=== PATIENT | female | born 1970 | race Caucasian/White ===

== ENCOUNTER → 2016-07-27 | Outpatient (CLI) | payer OTHER ==
[~2016-07-27] MED LIST: CIPR-255 PO; ESOM1TAB PO; LEVO137T3 PO; MULT-190 PO; MULT-506 PO
== END | disposition home or self-care (01) ==
LOC: C.LABBFT 16:23
PROVIDERS: ATTEND Internal Medicine
DX: E03.9 Hypothyroidism, unspecified (principal)

== ENCOUNTER → 2016-08-22 | Outpatient (CLI) | payer OTHER ==
--- NOTE | 2016-08-22 13:33 | MAMMOGRAPHY REPORT ---
BILATERAL DIGITAL DIAGNOSTIC MAMMOGRAM TOMOSYNTHESIS WITH CAD AND TARGETED RIGHT ULTRASOUND: 7 CLINICAL HISTORY: 46-year-old female presents for annual bilateral screening mammography. She is la te to follow-up probably benign findings in the right 6:00 and 6:30 breast on ultrasound. Patient r eports interval weight loss. TECHNIQUE: Bilateral breast tomosynthesis in addition to standard 2D mammography was performed. Curr ent study was also evaluated with a Computer Aided Detection (CAD) system. COMPARISON: Comparison is made to exam dated: 05/04/2015 mammogram. BREAST COMPOSITION: The tissue of both breasts is heterogeneously dense, which may obscure small ma sses. The breast density has increased compared to the 05/04/2015 exam. There is decreased subcuta neous and retroglandular fat, consistent with the clinical history of interval weight loss. FINDINGS: There are stable benign-appearing calcifications in the medial posterior aspect of the wendy asts. No suspicious mass, architectural distortion or cluster of microcalcifications is seen. Targeted ultrasound was performed in the 5:00 through 7:00 axes of the right breast with particular attention to the 6:00 and 6:30 axis in the locations of previously described complicated cysts based on the outside ultrasound report. In the 6:30 breast, 3 cm from the nipple, there are 2 adjacent a nechoic simple cysts measuring 4.2 x 2.7 x 4.2 mm in conglomerate. These have not significantly wilton nged compared to the previous ultrasound. However, no mass is identified in the 6:00 breast, 4 cm f rom the nipple in the area of probable, located cyst. Currently, an anechoic benign simple cyst is seen in the right 6:00 breast, 1 cm from the nipple, measuring 4.8 x 3.3 x 6.1 mm. Other smaller an echoic simple cysts are identified in the 6:30 and 5:00 axes. No suspicious solid mass is seen. IMPRESSION: ACR BI-RADS CATEGORY 2: BENIGN, TARGETED ULTRASOUND ACR BI-RADS CATEGORY 2: BENIGN 1. Increased density of the breasts mammographically, compatible with the clinical history of weight loss. 2. There is no mammographic evidence of malignancy bilaterally. One of the previously identified cy sts in the 6:00 right breast has resolved and the other small abutting simple cysts are stable, and benign in appearance. No further close follow-up is needed at this time. 3. There is no mammographic or targeted sonographic evidence of malignancy. A 1 year screening mammo gram is recommended. The patient has been verbally notified of the results. Approximately 10% of breast cancers are not detected with mammography. A negative mammographic repor t should not delay biopsy if a clinically suggestive mass is present. Shirley Huerta M.D. ay/:08/22/2016 12:08:15 Locomotive Electrician: Loren Crews, [facility] letter sent: Normal 1/2 BI-RADS Code: ACR BI-RADS Category 2: Benign Ultrasound BI-RADS: ACR BI-RADS Category 2: Benign
== END | disposition home or self-care (01) ==
LOC: C.MAMM 10:39
PROVIDERS: ATTEND Internal Medicine
DX: R92.8 Other abnormal and inconclusive findings on diagnostic imaging of breast (principal); N64.89 Other specified disorders of breast

== ENCOUNTER → 2016-12-27 | Outpatient (CLI) | payer OTHER ==
[2016-12-27 12:21] LABS: BASO % 1.2 %; BASO ABS # 0.09 K/uL (0-0.2); COMPLETE YES; EOS % 2.8 %; HEMATOCRIT 40.2 % (37-47); IG% 0.1 %; LYMPH % 33.6 %; LYMPH ABS # 2.54 K/uL (1.2-3.4); MEAN CELL VOLUME 88.7 fL (80-100); MEAN CORPUSCULAR HEMOGLOBIN 30.2 pg (25-34); MEAN CORPUSCULAR HGB CONC 34.1 g/dl (32-36); MEAN PLATELET VOLUME 9.2 fL (7.4-10.4); MONO % 11.9 %; NEUT % 50.4 %; PLATELET COUNT 293 K/uL (130-400); RED BLOOD COUNT 4.53 M/uL (4.2-5.4); WHITE BLOOD COUNT 7.56 K/uL (4.8-10.8)
[2016-12-27 19:03] LABS: THYROID STIMULATING HORMONE 0.142 uIu/ml (0.300-4.500)
== END | disposition home or self-care (01) ==
LOC: C.LABBFT 11:14
PROVIDERS: ATTEND Internal Medicine
DX: N92.0 Excessive and frequent menstruation with regular cycle (principal); E03.9 Hypothyroidism, unspecified

== ENCOUNTER → 2017-01-23 | Outpatient (CLI) | payer OTHER | END | disposition home or self-care (01) | LOC: C.PAPS 11:19 | PROVIDERS: ATTEND Physician Assistant | DX: Z01.419 Encounter for gynecological examination (general) (routine) without abnormal findings (principal) ==

== ENCOUNTER → 2017-01-23 | Outpatient (CLI) | payer OTHER ==
[2017-01-25 15:42] LABS: CHLAMYDIA TRACH RNA*** NOT DETECTED (NOT DETECTED); GC (NEIS GONORRHOEAE)RNA** NOT DETECTED (NOT DETECTED)
== END | disposition home or self-care (01) ==
LOC: C.LAB1850 12:25
PROVIDERS: ATTEND Physician Assistant
DX: Z11.3 Encounter for screening for infections with a predominantly sexual mode of transmission (principal)

== ENCOUNTER → 2017-02-21 | Outpatient (CLI) | payer OTHER | END | disposition home or self-care (01) | LOC: C.LABBFT 17:54 | PROVIDERS: ATTEND Internal Medicine | DX: E03.9 Hypothyroidism, unspecified (principal) ==

== ENCOUNTER → 2017-07-31 | Outpatient (CLI) | payer OTHER | END | disposition home or self-care (01) | LOC: C.LABBFT 14:12 | PROVIDERS: ATTEND Nurse Practitioner | DX: E03.9 Hypothyroidism, unspecified (principal) ==

== ENCOUNTER → 2018-02-26 | Outpatient (CLI) | payer OTHER ==
[2018-02-26 12:39] LABS: BASO % 1.6 %; EOS % 5.5 %; EOS ABS # 0.35 K/uL (0-0.5); HEMATOCRIT 40.2 % (37-47); HEMOGLOBIN 12.9 g/dL (12.0-16.0); IG# 0.01 K/uL (0.00-0.02); LYMPH % 29.4 %; LYMPH ABS # 1.89 K/uL (1.2-3.4); MEAN CELL VOLUME 90.1 fL (80-100); MEAN CORPUSCULAR HEMOGLOBIN 28.9 pg (25-34); MEAN CORPUSCULAR HGB CONC 32.1 g/dl (32-36); MEAN PLATELET VOLUME 9.8 fL (7.4-10.4); MONO % 9.2 %; MONO ABS # 0.59 K/uL (0.11-0.59); NEUT % 54.1 %; NEUT ABS # 3.48 K/uL (1.4-6.5); PLATELET COUNT 312 K/uL (130-400); RED CELL DISTRIBUTION WIDTH CV 13.9 % (11.5-14.5); RED CELL DISTRIBUTION WIDTH SD 45.6 fL (36.4-46.3); WHITE BLOOD COUNT 6.42 K/uL (4.8-10.8)
[2018-02-26 13:16] LABS: ALBUMIN 3.7 gm/dl (3.4-5.0); ALKALINE PHOSPHATASE 36 U/L (45-117); ALT/SGPT 17 U/L (12-78); AST/SGOT 11 U/L (15-37); BLOOD UREA NITROGEN 11 mg/dl (7-18); CALCIUM 8.3 mg/dl (8.5-10.1); CARBON DIOXIDE 25 mmol/L (21-32); CHOLESTEROL 141 mg/dl (0-200); CREATININE 0.93 mg/dl (0.60-1.20); GLUCOSE 89 mg/dl (70-99); LDL CHOLESTEROL CALCULATED 75 mg/dl; POTASSIUM 3.7 mmol/L (3.5-5.1); SODIUM 138 mmol/L (136-145); TOTAL PROTEIN 7.2 gm/dl (6.4-8.2)
[2018-02-26 13:37] LABS: HEP C IGG 13 YRS+OLDER_RFLX NEG (NEG)
[2018-02-27 13:42] LABS: HERPES SIMPLEX AB IGG-1 < 0.90 INDEX (< 0.90); HERPES SIMPLEX AB IGG-2 < 0.90 INDEX (< 0.90)
[2018-02-28 15:57] LABS: HEPATITIS A IGM TC 51813E NON-REACTIVE (NON-REACTIVE); HEPATITIS B CORE IGM TC51854R NON-REACTIVE (NON-REACTIVE); HERPES SIMPLEX AB IGG-1 < 0.90 INDEX (< 0.90); HERPES SIMPLEX AB IGG-2 < 0.90 INDEX (< 0.90)
== END | disposition home or self-care (01) ==
LOC: C.LABBFT 09:21
PROVIDERS: ATTEND Physician Assistant Medical
DX: Z20.2 Contact with and (suspected) exposure to infections with a predominantly sexual mode of transmission (principal); E03.9 Hypothyroidism, unspecified

== ENCOUNTER 2018-10-26 11:01 | Observation (INO) ==
--- NOTE | 2018-10-11 16:25 | PAT Medication Instructions ---
Medication Instructions Date of Service October 11, 2018 Home Medications cranberry 500 mg PO QAM levothyroxine 125 mcg PO QAM venlafaxine [Effexor XR] 75 mg PO QAM multivitamin [Multiple Vitamins] 1 tab PO QAM pantoprazole 20 mg PO QAM ibuprofen 400 mg PO QID PRN ASK your surgeon for instructions ibuprofen 400 mg PO QID PRN STOP taking 2 weeks before surgery (or as soon as possible if surgery is within 2 weeks) cranberry 500 mg PO QAM DO NOT take the morning of surgery multivitamin [Multiple Vitamins] 1 tab PO QAM Take morning of surgery With a small sip of water, OTHERWISE NOTHING TO EAT OR DRINK AFTER MIDNIGHT: levothyroxine 125 mcg PO QAM venlafaxine [Effexor XR] 75 mg PO QAM pantoprazole 20 mg PO QAM Other Notes If you have any questions please call us at [phone] or [phone] or [phone] or [phone]
--- NOTE | 2018-10-12 09:43 | Anesthesiology Consultation ---
Date of Service October 12, 2018 Assessment & Plan (1) Encounter for pre-operative examination: Chart Review Chart Review: Acceptable Risk for Surgery and Patient seen in Pre Admission Testing Consults Requested none Teaching & Discussion Pre-Anesthesia Teaching/Discussion Notes: Instructed NPO after midnight before surgery, except medications with 15 cc of water. Medication instructions provided according to the PAT guidelines. History Surgery Operation Date: 10/26/18 13:25 Proposed Procedures p Robotic Total Laparoscopic Hysterectomy Rogelio Ceballos MD Height/Weight Height: 5 ft 6 in Weight: 72.1 kg Allergies Allergy/AdvReac Type Severity Reaction Status Date / Time codeine Allergy Intermediate Shortness Verified 10/09/18 08:08 of breath, skin tightness bupropion [From Wellbutrin] Allergy Mild "GOT Verified 10/09/18 08:08 SICK"NAUSEA AND VOMITING diclofenac Allergy Unknown "CAN'T Verified 10/09/18 08:08 REMEMBER" Medications Home Medications Medication Instructions Recorded Confirmed Last Taken cranberry 500 mg PO QAM 06/11/18 10/09/18 09/25/18 levothyroxine 125 mcg PO QAM 06/11/18 10/09/18 09/25/18 venlafaxine [Effexor XR] 75 mg PO QAM 06/11/18 10/09/18 09/25/18 multivitamin [Multiple Vitamins] 1 tab PO QAM 09/25/18 10/09/18 09/25/18 pantoprazole 20 mg PO QAM 09/25/18 10/09/18 09/25/18 ibuprofen 400 mg PO QID PRN 10/09/18 10/09/18 Unknown Past Medical History Medical History Anxiety Bipolar disorder Depression GERD (gastroesophageal reflux disease) Hypothyroidism Osteoarthritis Post traumatic stress disorder Past Family History Family History Mother Family history of diabetes mellitus Family history of reaction to anesthesia NAUSEA AND VOMITING Family/Other Family history of diabetes mellitus Grandfather (Maternal) No problems noted. Grandmother (Paternal) Family history of diabetes mellitus Sister Family history of diabetes mellitus Past Surgical History Surgical History History of appendectomy History of bilateral tubal ligation History of cholecystectomy History of colonoscopy History of dilatation and curettage UTERINE ABLATION History of esophagogastroduodenoscopy (EGD) History of tooth extraction Past Anesthesia History No Hx of Anesthesia Complications and No Family Hx of Anesthesia Complications History of PONV No Motion Sickness Screening History of Motion Sickness: No Social History Smoking Status: Current every day smoker tobacco type: cigarettes Smoking cigarettes per day: 10 CIGS A DAY Hx Alcohol Use: Yes Alcohol type: hard liquor alcohol intake frequency: a few times a week Hx Substance Use: No substance use type: does not use Exercise / Class Metabolic Activity II 4-5 Yardwork/Stairs/Walk up hill (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 Able to climb FOS. Denies CP or SOB. ) Review of Systems Patient denies chest pain, shortness of breath, dyspnea on exertion, joint pain, cough, wheezing, palpitations. +Acid Reflux (controlled by medications) Physical Exam Vital Signs BP: 116/76 P: 60 R: 14 T: 98.9 SPO2: 100% on RA ENMT Thyromental Distance: < 3.5 Finger Breadths (3) Mallampati Class: I Neck normal visual inspection and trachea midline; neck extension not limited Respiratory normal respiratory effort Auscultation: lungs clear to auscultation bilaterally Cardiovascular Rate/Rhythm: regular rate and regular rhythm Heart Sounds: no murmur Vessels: no carotid bruit Neurologic moves all extremities Psychiatric Orientation: alert and oriented x 3 Testing Laboratory Results Laboratory Tests 09/25/18 09/25/18 09/25/18 14:35 14:35 14:35 WBC 9.74 Hgb 10.9 L Hct 33.3 L Plt Count 289 PT 10.2 INR 1.0 APTT 24.0 Sodium 137 Potassium 3.9 Chloride 107 Carbon Dioxide 24 BUN 20 H Creatinine 0.64 Glucose 87
[~2018-10-26 11:01] MED LIST changes: +CEFAZOLIN 2000MG 2,000 MG/15 ML SYR IV SCH; -CIPR-255 PO; -ESOM1TAB PO; +LACTATED RINGER'S 1,000 ML IV SCH; -LEVO137T3 PO; +LR 15ML/HR IV SCH; -MULT-190 PO; -MULT-506 PO
[2018-10-26 11:48] LABS: Basophils # (auto) 0.08 K/uL (0-0.2); Basophils % (auto) 1.2 %; Eosinophils # (auto) 0.69 K/uL (0-0.5); Eosinophils % (auto) 10.2 %; Hematocrit (blood only) 35.7 % (37-47); Hemoglobin 11.7 g/dL (12.0-16.0); Immature Granulocytes # (auto) 0.01 K/uL (0.00-0.02); Immature Granulocytes % (auto) 0.1 %; Lymphocytes # (auto) 1.76 K/uL (1.2-3.4); Mean Corpuscular Hgb Conc 32.8 g/dL (32-36); Mean Corpuscular Volume 86.7 fL (80-100); Mean Platelet Volume 8.7 fL (7.4-10.4); Monocytes # (auto) 0.88 K/uL (0.11-0.59); Neutrophils # (auto) 3.35 K/uL (1.4-6.5); Neutrophils % (auto) 49.5 %; Platelet Count 278 K/uL (130-400); RDW Standard Deviation 47.6 fL (36.4-46.3); Red Blood Count 4.12 M/uL (4.2-5.4); White Blood Count 6.77 K/uL (4.8-10.8)
[2018-10-26] MEDS ORDERED: ATROPINE SULFATE 0.1 MG/ML 10ML SYR IV PRN (11:51)
[2018-10-26] MEDS ORDERED: LABETALOL HCL IV 5 MG/ML 20ML IV PRN (11:51)
[2018-10-26] MEDS ORDERED: ONDANSETRON INJ 2 MG/ML 2 ML VIAL IV PRN ×2 (11:51→16:30)
[2018-10-26] MEDS ORDERED: PHENYLEPHRINE 100MCG/ML 5ML SYR IV PRN (11:51)
[2018-10-26] MEDS ORDERED: ePHEDrine sulfate 50 MG/ML AMP IV PRN (11:51)
[2018-10-26] MEDS ORDERED: MEPERIDINE HCL 25 MG/ML CARP IV PRN (11:51)
--- NOTE | 2018-10-26 12:07 | History & Physical Bridge Note ---
Date of Service October 26, 2018 History & Physical Bridge Note I have examined the patient, reviewed the History & Physical and in the interval since the performance of the History & Physical I have noted the following changes of clinical significance: no changes noted
[2018-10-26] MEDS ORDERED: MIDAZOLAM HCL 1 MG/ML 2ML VIAL ONE (12:47)
[2018-10-26] MEDS ORDERED: GLYCOPYRROLATE 0.2 MG/ML VIAL ONE (12:47)
[2018-10-26] MEDS ORDERED: SUCCINYLCHOLINE CHLORIDE 20 MG/ML 10 ML VIAL ONE (12:47)
[2018-10-26] MEDS ORDERED: NEOSTIGMINE METHYLSULFATE 5 MG/5 ML SYR ONE (12:47)
[2018-10-26] MEDS ORDERED: PROPOFOL IV EMULSION 10 MG/ML 20 ML VIAL IV ONE (12:47)
[2018-10-26] MEDS ORDERED: ePHEDrine sulfate 50 MG/ML AMP ONE (12:47)
[2018-10-26] MEDS ORDERED: LIDOCAINE HCL 2% 2 ML VIAL/AMP(20MG/ML) INFIL ONE (12:47)
[2018-10-26] MEDS ORDERED: DEXAMETHASONE SOD INJ 4 MG/ML VIAL ONE ×2 (12:47→14:09)
[2018-10-26] MEDS ORDERED: ONDANSETRON INJ 2 MG/ML 2 ML VIAL ONE ×3 (12:47→17:05)
[2018-10-26] MEDS ORDERED: PHENYLEPHRINE HCL 10 MG/ML VIAL ONE (12:47)
[2018-10-26] MEDS ORDERED: fentaNYL citrate 100 MCG/2 ML VIAL ONE ×2 (12:47→17:05)
[2018-10-26] MEDS ORDERED: BUPIVACAINE 0.5 % 5 MG/1 ML MPF 30ML VIAL ONE (13:02)
[2018-10-26] MEDS ORDERED: HYDROmorphone INJ 2 MG/ML SYR/VIAL ONE (13:42)
[2018-10-26] MEDS ORDERED: ROCURONIUM BROMIDE 10 MG/ML 5 ML VIAL ONE (14:09)
[2018-10-26] MEDS ORDERED: KETOROLAC 30 MG/ML VIAL ONE (14:09)
[2018-10-26] MEDS ORDERED: ACETAMINOPHEN 1000 MG/100 ML IV IV ONE (14:38)
[2018-10-26] MEDS ORDERED: TISSEEL FIBRIN SEALANT 10ML TOP ONE (16:10)
--- NOTE | 2018-10-26 16:29 | Post Operative Brief Note ---
Immediate Post Op Note v1 Date of Surgery October 26, 2018 Pre & Post Diagnosis Operation Date: 10/26/18 12:45 Pre-Op Diagnosis: Dysfunctional Uterine Bleeding Chronic Pelvic Pain Post-Op Diagnosis: Dysfunctional Uterine Bleeding Chronic Pelvic Pain Procedure Operation Date: 10/26/18 12:45 Actual Procedures p Robotic Assisted Laparoscopic Hysterectomy Bilateral Salpingo-Oophorectomy, Cystoscopy, Lysis of Adhesions(Not Applicable) - Darinel Ceballos MD EBL: 50 Complications: None Surgeon Darinel Ceballos MD Aquatic Director Dr. Martin Estimated Blood Loss 50 Findings Consistent with Post-Op Diagnosis Drains Pandya Catheter
[2018-10-26] MEDS ORDERED: MAGNESIUM HYDROXIDE SUSP 30 ML UDC PO PRN (16:30)
[2018-10-26] MEDS ORDERED: SIMETHICONE 80 MG CHEW PO PRN (16:30)
[2018-10-26] MEDS ORDERED: ACETAMINOPHEN 325 MG TAB PO PRN (16:30)
[2018-10-26] MEDS ORDERED: OXYCODONE/ACETAMINOPHEN 5mg/325mg TAB PO PRN (16:30)
[2018-10-26] MEDS ORDERED: PROMETHAZINE HCL 12.5 MG in SODIUM CHLORIDE 0.9% 50 ML IV PRN (16:30)
[2018-10-26] MEDS ORDERED: BISACODYL 10 MG SUPP PR PRN (16:30)
[2018-10-26] MEDS ORDERED: KETOROLAC 30 MG/ML VIAL IV PRN (16:30)
[2018-10-26] MEDS: fentaNYL citrate 100 MCG/2 ML VIAL IV PRN ×2 (17:06→17:11)
--- NOTE | 2018-10-26 17:29 | Anesthesiology Progress Note ---
Date of Service October 26, 2018 Anesthesia Post Procedure Vital Signs Vital Signs: Temp Pulse Pulse Resp BP BP Pulse Ox 10/26/18 17:20 36.4 C L 71 16 103/64 94 10/26/18 17:10 54 L 16 122/65 97 10/26/18 17:00 64 16 132/66 100 10/26/18 16:52 36.0 C L 60 16 124/82 98 10/26/18 11:32 37.1 C 62 16 120/76 98 Notes Mental Status: alert / awake / arousable and participated in evaluation Patient Amnestic to Procedure: Yes Nausea / Vomiting: adequately controlled Pain: adequately controlled Airway Patency, RR, SpO2: stable & adequate BP & HR: stable & adequate Hydration State: stable & adequate Anesthetic Complications: no major complications apparent
[2018-10-26 19:48] LABS: Hematocrit (blood only) 35.3 % (37-47); Hemoglobin 11.3 g/dL (12.0-16.0)
[2018-10-26] MEDS: DOCUSATE SODIUM 100 MG CAP PO SCH (21:19)
[2018-10-26] MEDS: IBUPROFEN 600 MG TAB PO PRN (21:19)
[2018-10-26] MEDS ORDERED: LACTATED RINGER'S 1,000 ML IV SCH (21:30)
[2018-10-26] MEDS: OXYCODONE/ACETAMINOPHEN 5mg/325mg TAB PO PRN (22:45)
[2018-10-27] MEDS: IBUPROFEN 600 MG TAB PO PRN ×2 (02:25→08:03)
[2018-10-27] MEDS: OXYCODONE/ACETAMINOPHEN 5mg/325mg TAB PO PRN ×3 (02:26→08:07)
--- NOTE | 2018-10-27 07:56 | Gynecologic Progress Note ---
Date of Service October 27, 2018 Assessment & Plan (1) Dysfunctional uterine bleeding: Post operative day 1 from [facility], BSO, lysis of adhesions, cystoscopy - Doing well - Post operative precautions discussed - Stable for discharge Subjective doing well. pain controlled. No N/V. ambulating/voiding /tolerating regular diet Physical Exam Vital Signs (Past 24 Hours): Last Vital Signs Temp 36.9 C 10/27/18 03:15 Pulse 58 L 10/27/18 03:15 Resp 18 10/27/18 03:15 BP 109/61 10/27/18 03:15 Pulse Ox 96 10/27/18 03:15 Gastrointestinal (Abdomen): Inspection/Auscultation: abdomen not distended Percussion/Palpation: abdomen soft; abdomen nontender, no guarding and abdomen not rigid
[2018-10-27] MEDS: DOCUSATE SODIUM 100 MG CAP PO SCH (09:08)
--- NOTE | 2018-10-27 09:48 | Operative Report ---
DATE OF OPERATION: 10/27/2018 PROCEDURES: 1. Robotic-assisted total laparoscopic hysterectomy. 2. Bilateral salpingo-oophorectomy. 3. Extensive lysis of adhesions greater than 2 hours. 4. Cystoscopy. SURGEON: Darinel Ceballos MD CRYSTAL ATTACHER: Marcy Martin MD PREOPERATIVE DIAGNOSES: 1. Dysfunctional uterine bleeding. 2. Chronic pelvic pain. 3. Anemia. POSTOPERATIVE DIAGNOSES: 1. Dysfunctional uterine bleeding. 2. Chronic pelvic pain. 3. Anemia. 4. Endometriosis: 5. 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 ESTIMATED BLOOD LOSS: 50 mL. URINE OUTPUT: 200 mL via Pandya. DRAINS: None. FLUIDS: Continuous lactated ringer. COMPLICATIONS: None. FINDINGS: There was noted to be extensive adhesive disease covering the entire left lower quadrant including both bowel and omentum. The adhesions started approximately 1 cm to the right of the umbilicus, continued to the left lateral, left lower quadrant throughout. There was also noted to be extensive adhesive disease in the pelvis and with a near frozen pelvis noted. There was a fairly large lesion of endometriosis on the left cornua of the uterus, otherwise distinctive endometriosis was not seen otherwise. There was an approximately 8-9 week size uterus, normal-appearing ovaries bilaterally, normal-appearing fallopian tube remnants. There was noted to be an intact bladder and bilateral ureteral efflux on cystoscopy. INDICATIONS: Ms. Brown is a 48-year-old with a long history of worsening uterine bleeding and chronic pelvic pain. The patient was noted to have an extensive and prolonged bleeding periods at times lasting 2 weeks or greater. The patient was seen in the ED on several occasions for her bleeding and was noted to be anemic. The patient also reports a long history of chronic pelvic pain which had been progressively worsening. The patient had not been formally diagnosed with endometriosis, although there was at least 1 large endometriosis lesion noted on laparoscopy today. Management options were discussed in clinic. The patient opted to proceed with the above-named procedures. DESCRIPTION OF PROCEDURE: The patient was taken to the operating room after consents were ensured. Upon presentation, she was properly identified. General endotracheal anesthesia was obtained without difficulty. The patient was then prepped and draped in the normal sterile fashion. A preprocedural timeout was performed. The VCare uterine manipulator and Pandya were then placed per orthotic practitioner's specifications. The laparoscopic portion of the case was then initiated. An incision was made in the superior aspect of the umbilicus to accommodate a 12 mm trocar. A Veress needle was placed within the incision and the abdomen was insufflated to 15 mmHg. There was noted to be symmetrical abdominal rise tympany over the liver consistent with appropriate intra-abdominal insufflation. A 12 mm optically guided trocar was then introduced through the incision. An evaluation of the abdomen and pelvis noted to be with the findings as noted above. There was noted to be free space on the right lower quadrant and an 8 mm trocar was placed in the right lower quadrant. An 11 mm trocar was placed in the left upper quadrant as this was noted to be awesomely clear of adhesions. Extensive adhesiolysis was then performed to provide space for entry of the trocar into the left lower quadrant. Once a safe area was achieved, an 8 mm port was placed in the left lower quadrant, and under direct visualization, all trocars were noted to have atraumatic entry. The robot was then docked. Lysis of adhesions was then continued with the robot, freeing the left lower quadrant of adhesions. The extensive pelvic adhesiolysis was then initiated freeing the uterus, ovaries and fallopian tubes for the procedure. Hysterectomy portion of the case was then initiated. The left round ligament was identified, serially cauterized and dissected. The bladder flap was then created anteriorly from the left and right with care to identify the VCare uterine manipulator cup during dissection. Due to the adhesive nature that was present, the decision was made to remove the uterus separate from the ovaries. The left uteroovarian ligament was identified, grasped, serially cauterized and dissected. This was continued down joining with the left round ligament, continuing with dissection down to the broad ligament down to the level of the uterine vessels. Uterine vessels were identified and isolated. The attention was then turned to the right aspect of the uterus. The right IP ligament was easily identified and was noted to be distant from the ureter. The IP ligament was then serially cauterized, dissected, proximal to the ovary, freeing the ovary from the IP pedicle. The right round ligament was then identified, serially cauterized and dissected. The bladder flap was then continued on the left joint into to the right side of the bladder flap. The right broad ligament was then dissected down to the level of the uterine vessels. The bladder was then dissected off of the lower uterine segment and cervix. The right uterine vessels were then serially cauterized and divided. The attention was then turned to the left uterine vessels which were then serially cauterized and dissected. The VCare uterine manipulator cup was identified and the colpotomy was initiated anteriorly, continuing around the VCare uterine manipulator cup circumferentially around the cervix until the cervix was free from the vagina. The uterus, cervix and right adnexa were then delivered through the colpotomy. Attention was then turned to the left ovary and fallopian tube remnant. The right ovary was identified, freed of adhesions and then serially cauterized and dissected with care to be distant from the ureter. The ovary was then delivered through the colpotomy. The vaginal cuff was then reapproximated with a V-Loc suture in a continuous running stitch. There was noted to be an airtight seal. A cystoscopy was then performed and there was noted to be an intact bladder without suture with bilateral ureteral efflux noted. Tisseel was then placed over the raw edges of the adhesions as well as the bladder, the vaginal cuff and bilateral IP ligaments. The laparoscopic portion of the case was then ended. The trocars were removed, abdomen desufflated. The fascia was then reapproximated at both the umbilical incision and the left upper quadrant with 0 Vicryl. The skin was reapproximated with 4-0 Monocryl. Dermabond was placed on top. Needle, sponge and instrument counts were correct at the completion of the case. The patient was awoken from anesthesia and taken to the recovery room in stable condition. I attest to the content of the Intraoperative Record and any orders documented therein. Any exception s are noted below.
--- NOTE | 2018-10-27 09:56 | Discharge Summary ---
PROCEDURES: Total laparoscopic hysterectomy, bilateral salpingo-oophorectomy, extensive lysis of adhesions and cystoscopy. ADMITTING PHYSICIAN AND SURGEON: Darinel Ceballos MD DISCHARGING PHYSICIAN: Darinel Ceballos MD HOSPITAL COURSE: The patient was admitted for a scheduled surgery as listed above. The surgery was without complication. The patient was then admitted for observation postoperatively and did well. The patient was meeting all postoperative goals including ambulating, tolerating diet, pain controlled, voiding and tolerating diet and was stable for discharge. DISCHARGE INSTRUCTIONS: Extensive discharge instructions were given both verbally and in written form and all questions answered to Diana's satisfaction. The patient will be seen in clinic in 2 weeks for followup and was instructed to call with any complications.
--- NOTE | 2018-10-27 13:03 | Anesthesiology Progress Note ---
Date of Service October 27, 2018 Anesthesia Post Procedure Vital Signs Vital Signs: Temp Pulse Pulse Resp BP Pulse Ox Pulse Ox 10/27/18 08:58 37 C 56 L 20 126/70 99 10/27/18 08:20 37 C 56 L 20 126/70 99 10/27/18 03:15 36.9 C 58 L 18 109/61 96 10/26/18 23:25 36.8 C 56 L 17 118/70 96 10/26/18 20:05 36.8 C 67 20 121/73 94 10/26/18 19:05 36.8 C 62 16 111/63 94 10/26/18 18:05 36.5 C 64 20 103/60 96 10/26/18 17:35 37 C 60 16 108/65 94 94 10/26/18 17:20 36.4 C L 71 16 103/64 94 10/26/18 17:10 54 L 16 122/65 97 10/26/18 17:00 64 16 132/66 100 10/26/18 16:52 36.0 C L 60 16 124/82 98 Pain Intensity Abdomen: Pain Intensity: 10 Notes Mental Status: alert / awake / arousable and participated in evaluation Patient Amnestic to Procedure: Yes Nausea / Vomiting: adequately controlled Pain: adequately controlled Airway Patency, RR, SpO2: stable & adequate BP & HR: stable & adequate Hydration State: stable & adequate Anesthetic Complications: no major complications apparent and Pt Satisfied with anesthetic care
--- OUTSIDE RECORDS SUMMARY | 2018-11-12 13:56 | External Medical Summary | Continuity of Care Document ---
:1970 Author Name Luis Carlos Robles, Provider Address Unavailable Unavailable , Care Team Providers Name Role Phone Stacy Hernandez Unavailable [email or web address] Liv Velazquez PA-C Unavailable [email or web address] Tucker Robles Unavailable [email or web address] LUCRECIA Robles, Judith Unavailable Unavailable Unavailable Unavailable Unavailable Problems Rash (782.1) (R21) Seasonal allergies (477.9) (J30.2) Dysfunctional uterine bleeding (626.8) (N93.8) Encounter for routine gynecological examination (V72.31) (Z0 1.419) Post-operative state (V45.89) (Z98.890) Chronic pelvic pain in female (625.9) (R10.2) Hemorrhoids (455.6) (K64.9) Gastroesophageal reflux disease (530.81) (K21.9) Anxiety and depression (300.00) (F41.9) Dysphagia (787.20) (R13.10) Hypothyroidism (244.9) (E03.9) Dermatitis of lower extremity (692.9) (L30.9) Polymenorrhea (626.2) (N92.0) Menorrhagia (626.2) (N92.0) Bipolar disorder, unspecified (296.80) (F31.9) Exposure to STD (V01.6) (Z20.2) Allergies and Adverse Reactions Codeine Derivatives (Allergy) diclofenac (Allergy) Reaction: Other Wellbutrin (Allergy) Pollen (Allergy) Medications Venlafaxine HCl ER 75 MG Oral Capsule Ex tended Release 24 Hour; take 1 capsule by mouth once daily DANELLE Velazquez Start: 13-Oct-2018 Quantity: 30 Refills: 5 Pantoprazole Sodium 40 MG Oral Tablet De layed Release; take 1 tablet by mouth once daily DANELLE Velazquez Start: 16-Oct-2018 Quantity: 30 Refills: 5 Venlafaxine HCl ER 75 MG Oral Tablet Ext ended Release 24 Hour; Take 1 tablet daily DANELLE Velazquez Start: 10-Apr-2018 Quantity: 30 Refills: 5 Levothyroxine Sodium 125 MCG Oral Tablet; take 1 table t by mouth once daily DANELLE Velazquez Start: 23-Oct-2018 Quantity: 30 Refills: 5 Allergy 10 MG Oral Tablet; TAKE 1 TABLET DAILY NEEDED. Start: 05-Aug-2016 Refills: 0 Multiple Vitamins TABS Refills: 0 Fluocinonide 0.05 % External Cream; APPL Y SPARINGLY TO AFFECTED AREA(S) TWICE DAILY for one week JEY Goff Start: 31-Jul-2017 Quantity: 1 30 GM Tube Refills: 0 Procedures History of Gallbladder Surgery Status: C ompleted History of Tubal Ligation Status: Comple krystle History of dilation and curettage Status : Completed History of laparoscopy Status: Completed Immunizations Immunizations not documented Family History Father Family history of alcohol abuse (V61.41) (Z81.1) Status: Act jenna Family history of hypertension (V17.49) (Z82.49) Status: Act jenna Mother Family history of Anxiety (300.00) (F41.9) Status: Active Family history of depression (V17.0) (Z81.8) Status: Active Family history of diabetes mellitus (V18.0) (Z83.3) Status: Active Family history of hypertension (V17.49) (Z82.49) Status: Act jenna FHx: hypercholesterolemia (V18.19) (Z83.42) Status: Active Family history of Premature labor (644.00) (O60.00) Status: Active Family history of colonic polyps (V18.51) (Z83.71) Status: A ctive Unknown Family Member Family history of malignant neoplasm (V16.9) Status: Active Comments: Family History (Z80.9) Family history of myocardial infarction Status: Active Comments: Family History (V17.3) (Z82.49) Family history of depression (V17.0) (Z81.8) Status: Active Comments: Family History Family history of diabetes mellitus (V18.0) Status: Active Comments: Family History (Z83.3) Family history of cardiac disorder (V17.49) Status: Active Comments: Family History (Z82.49) Family history of hypertension (V17.49) Status: Active Comments: Family History (Z82.49) Grandmother Family history of diabetes mellitus (V18.0) (Z83.3) Status: Active Grandparent Family history of cardiac disorder (V17.49) (Z82.49) Status: Active Family history of hypertension (V17.49) (Z82.49) Status: Act jenna Grandfather Family history of liver disease (V18.59) (Z83.79) Status: Ac tive Sister Family history of osteoporosis (V17.81) (Z82.62) Status: Act jenna Family history of endometriosis (V19.8) (Z84.2) Status: Acti ve aunt Family history of Twins (V27.9) (Z38.5) Status: Active aunt Family history of Twins (V27.9) (Z38.5) Status: Active Social History - Smoking Status Smoker. current status unknown Plan of Treatment Planned Encounters Appointment; Darinel Ceballos M.D. Start: 05-Dec-2018 9:30 Req uest Planned Observations Planned Goals not documented Results Pap Smear - Thin Prep 12-Oct-2018 0:00 PAP SMEAR AUTOMATED SCREENING Run: 10/18/18 1222 [facility] Pathology Report --------Name: YOAN DANIELS Linda Age/Sex: 48/F Location: [facility]: [id number] Unit: [id number] Status: [facility] Room/Bed:Re10/12/18 Disch: Att Dr: Darinel Ceballos MD ----Spec Num: [id number] Recd: 10/15/18 Status: ANIA Solo Num: [id number]: ULTRASONIC TESTER Sub Dr: Darinel Ceballos MDLMP: 2 WEEKS AGOClinical History: HX ABNORMAL PAP Copies To:Mckinley Strong MDKraft, Joshua D., MD Gynecological Results Diagnosis Negative for intraepithelial lesion or malignancy.Remarks HPV Testing with Reflex to Genotyping will be sentAdequacy of Specimen Satisfactory for evaluation.Automated Examination This specimen was successfully imaged by [facility], [place], [facility].Screen Date 10/18/18Screened By PAULO Saucedo([facility])Gynecologic Cervical Automated Imaging The Pap Smear is a valuable but imperfect test for uterine cervical cancer and itsprecursors. Both false negative and false positive results may occur. Electronically signed by PAULO Saucedo ([facility])on 10/18/18 at 1222 -- END OF REPORT HPV High Risk w Reflex Laboratory: [facility] Comments: [facility] [employer] NUMBER: [id number] 12-Oct-2018 12:00 HPV High Risk DETECTED Range: NOT DETEC KRYSTLE Comments: This test was performed using the APTIMA(R) HPV Assay([employer]This assay detects E6/E7 viral messenger RNA (mRNA) from 14high-risk HPV types (16,18,31,33,35,39,45,51,52,56,58,59,66,68).The [employer] aracteristics of this assayhave been determined by [employer]. Themodifications have not been cleared or approved by the FDA.This assay has been validated pursuant to the CLIAregulatio ns and is used for clinical purposes.THIS TEST WAS PERFORMED AT:[facility] [place] [address];[address] [place] [id number] WISEMAN MD HPV Genotype (Reflex-Do Laboratory: [facility] Comments: [facility] ACCESSION Not Order) [employer] NUMBER: [id number] 12-Oct-2018 12:00 HPV 16 RNA NOT DETECTED Range: NOT DETE CTED Comments: The analyt ical perfomance characteristics of this assayhave been determined by [employer].The modifications have not been cleared or approved by theFDA. this assay has been validated p ursuant to the CLIAr egulations and is used for clinical purposes. HPV 18 45 RNA NOT DETECTED Range: NOT D ETECTED Comments: This test was performed using the APTIMA HPV 16 18/45genotype assay ([employer] The assay candifferentiate HPV 16 from HPV 18 and/or HPV 45, but does notdifferentiate between HPV 18 and HPV 45.THI S TEST WAS PERFORMED AT:[facility] [place] [address];[address] [place] [id number] WISEMAN MD CBC With DIFF Laboratory: [facility] Laboratory Comments: Haroldo lloyd for Exam [address] [facility] [address] tel: 26-Oct-2018 11:32 WBC 6.77 K/uL Range: 4.8-10.8 K/u L RBC 4.12 {M/uL} (below low Range: 4.2-5 .4 M/uL threshold) HEMOGLOBIN 11.7 g/dL (below Range: 12.0 -16.0 g/dL low threshold) HEMATOCRIT 35.7 % (below low Range: 37- 47 % threshold) MCV 86.7 fL Range: 80-100 fL MCH 28.4 pg Range: 25-34 pg MEAN CORPUSCULAR HGB CONC 32.8 Range: 3 2-36 g/dL g/dL RED CELL DISTRIBUTION WIDTH SD Range: 3 6.4-46.3 fL 47.6 fL (above high threshold) RED CELL DISTRIBUTION WIDTH CV Range: 1 1.5-14.5 % 15.0 % (above high threshold) PLATELET COUNT 278 K/uL Range: 130-400 K/uL MEAN PLATELET VOLUME 8.7 fL Range: 7.4- 10.4 fL NEUT % 49.5 % Range: % LYMPH % 26.0 % Range: % MONO % 13.0 % Range: % EOS % 10.2 % Range: % BASO % 1.2 % Range: % IG% 0.1 % Range: % Comments: IG paramet er reflects the combination of Metas, Myelos andPromyelocytes. Neutrophils (Auto) 3.35 K/uL Range: 1. 4-6.5 K/uL LYMPH ABS # 1.76 K/uL Range: 1.2-3.4 K/ uL MONO ABS # 0.88 K/uL (above Range: 0.11 -0.59 K/uL high threshold) EOS ABS # 0.69 K/uL (above Range: 0-0.5 K/uL high threshold) BASO ABS # 0.08 K/uL Range: 0-0.2 K/uL IG# 0.01 K/uL Range: 0.00-0.02 K/ uL , Urine - Point Laboratory: [facility] Laboratory Of Care (Pending) [address] [facility] [address] tel: 26-Oct-2018 11:44 , Urine (Point of Range: NEG Care) NEG TYPE/SCREEN Hold Profile Laboratory: [facility] Laboratory [address] [facility] [address] tel: 26-Oct-2018 11:32 TYPE/SCREEN HOLD PROFILE Run: 10/26/18 1235 [facility] Pathology Report --------Name: YOAN DANIELS Age/Sex: 48/F Location: ASUAcct: [id number] Unit: [id number] Status: [facility] Room/Bed:Re10/26/18 Disch: Att Dr: Darinel Ceballos MD ---- Spec: [id number] Collected: 10/26/18-2Received: 10/26/18-[address]: Darinel Ceballos, [facility] To: Mckinley Strong MDOrd Prods: (NO ORDERED PRODUCTS)Ord Tests: TSComments: Reason for Exam PREOPComment SDSQueries: Patient Confirmed NTransfusion of Blood, Platelets, FFP in Past 3 Months? UnknownHas Patient Ever Had a Blood Transfusion? Unknown ---------Test Result Flag Reference Site ------Blood Type A NegAntibody Screen NEGATIVE Tests: Date Time Order Change Action User10/22/18 1507 TS 1 NEW [id number] -- END OF REPORT Hemoglobin and Hematocrit Laboratory: [facility] Laboratory [address] [facility] [address] tel: 26-Oct-2018 19:39 HEMOGLOBIN 11.3 g/dL (below Range: 12.0 -16.0 g/dL low threshold) HEMATOCRIT 35.3 % (below low Range: 37- 47 % threshold) Vital Signs 09-Nov-2018 9:45 Systolic 112 mm[Hg] Diastolic 72 mm[Hg] Temperature 97.5 f BMI Calculated 27.55 kg/m2 Weight 158 lb BSA Calculated 1.76 m2 Encounters Appointment; Darinel Ceballos M.D. 09-Nov-2018 9:30 Encounter Diagnosis: Problem not documented Appointment; Darinel Ceballos M.D. 26-Oct-2018 12:45 Encounter Diagnosis: Problem not documented Appointment; Darinel Ceballos M.D. 12-Oct-2018 8:30 Encounter Diagnosis: Problem not documented Appointment; Darinel Ceballos M.D. 27-Sep-2018 12:30 Encounter Diagnosis: Problem not documented Appointment; Norberto Huntley DO 19-Jun-2018 14:30 Encounter Diagnosis: Problem not documented Appointment; Liv Velazquez PA-C 10-Apr-2018 9:30 Encounter Diagnosis: Problem not documented Appointment; Liv Velazquez PA-C 26-Feb-2018 9:00 Encounter Diagnosis: Problem not documented Appointment; Stacy Goff CRNP 31-Jul-2017 13:30 Encounter Diagnosis: Problem not documented Appointment; Kuldip Méndez M.D. 30-Jan-2017 16:10 Encounter Diagnosis: Problem not documented Appointment; OBGYN SC2, Ultrasound 26-Jan-2017 15:30 Encounter Diagnosis: Problem not documented Appointment; Erlinda Mcknight PA-C 23-Jan-2017 11:40 Encounter Diagnosis: Problem not documented Appointment; Mckinley Strong M.D. 27-Dec-2016 10:50 Encounter Diagnosis: Problem not documented Appointment; Darinel Ceballos M.D. 05-Dec-2018 9:30 Encounter Diagnosis: Problem not documented
== END 2018-10-27 09:30 | disposition home or self-care (01) ==
LOC: ASU 11:01 → 4N 11:01 → 4S2 22:41